=== PATIENT | female | born 2005 | race Caucasian/White ===

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

== ENCOUNTER 2024-02-18 00:39 | Emergency (ER) | payer MEDICAID, SELFPAY ==
[2024-02-18 00:40] VITALS: BP 154/96; PULSE 129; RESP 16; TEMP 36.6; O2SAT 99; BMI 53.1
--- NOTE | 2024-02-18 01:05 | ED.VIS.BACK ---
HPI History of Present Illness Chief Complaint: Back Informant: patient Narrative Narrative: Patient presents with back pain that became worse today. Patient states she has been having this back pain since 2017. Patient states she has been having worsening rib pain. Patient denies any new symptoms or injuries. Patient states she no longer wants to be seen here in the emergency department tonight. Patient states she wants to go home and take care of her pain herself. PFSH PFSH Medical History (Updated 02/18/24 @ 01:[address] Benjamin Pimentel, DO) Asthma Home Medications NK 02/18/24 [History Last Taken Unknown] Allergy/AdvReac Type Severity Reaction Status Date / Time No Known Allergies Allergy Verified 02/18/24 00:40 Social History (Updated 07/09/21 @ 20:[address] Amilcar Major MD) Smoking Status: Never smoker alcohol intake: current substance use type: does not use EXAM Physical Exam Narrative Exam Narrative: Patient did not want me to examine her. Patient stated she wanted to leave prior to having me examine her or treat her. Const Vital Signs: 02/18/24 00:40 Temperature 98 F Temperature Source Temporal Pulse Rate 129 H Respiratory Rate 16 Blood Pressure 154/96 H Blood Pressure Mean 115 Pulse Ox 99 MDM MDM MDM Narrative Medical decision making narrative: I discussed with the patient that we would be happy to treat her tonight for her pain. Patient states she does not want that and wants to go home. Patient will be discharged. Patient was instructed to follow-up with her primary care physician for further evaluation and treatment. Discharge Plan Triage Chief Complaint: Back ED Provider: Benjamin Pimentel Dx/Rx/DC Orders Clinical Impression: Chronic back pain, Rib pain Prescriptions: No Action NK Primary Care Provider: Care Physician,No Primary Referrals: Chau Moreno MD [Non-Staff] - 5-7 Days Disposition Disposition: Home, Self Care Discharge Date/Time: 02/18/24 01:40
== END 2024-02-18 01:40 | disposition home or self-care (01) ==
LOC: ED 01:18
PROVIDERS: Emergency Provider Emergency Medicine; Visit Provider Emergency Medicine
DX: G89.29 Other chronic pain (principal); M54.9 Dorsalgia, unspecified; R07.81 Pleurodynia; J45.909 Unspecified asthma, uncomplicated; Z53.21 Procedure and treatment not carried out due to patient leaving prior to being seen by health care provider
CPT/HCPCS: 99282